=== PATIENT | female | born 1940 | race Caucasian/White ===

== ENCOUNTER 2016-06-24 11:38 | Emergency (ER) | payer MEDICARE, BC ==
--- NOTE | ~2016-06-24 | ER ---
PATIENT'S NAME: ELYSIA [facility] AGE: 76 Y [address] ROOM: [place] [address] LOCATION: [facility] ADMIT DATE: 06/24/2016 ER/Outpatient Report DISCHARGE DATE: 06/24/2016 FAMILY PHYSICIAN: Physician, Unknown ATTENDING PHYSICIAN: Jonathan Rene Time of Arrival: 1141 hours. Time of Evaluation: 1148 hours. CHIEF COMPLAINT: Cough and diarrhea. HISTORY OF PRESENT ILLNESS: The patient is a 76-year-old female, who presents to the emergency department today with a chief complaint of diarrhea. She also has a cough. She reports the diarrhea started 3 to 4 months ago. It got better and then she went and saw a surgeon about possible colonoscopy. He started her on some Metamucil and then it resolved. However, since Saturday or Saturday, she has had multiple episodes of diarrhea. She has also been achy all over. She has had a loose cough that is nonproductive. Has some decreased appetite, nasal congestion, nasal drainage, and been exposed to influenza. PAST MEDICAL HISTORY: 1. Chronic kidney disease. 2. Diverticulosis. PAST SURGICAL HISTORY: Hysterectomy. SOCIAL HISTORY: The patient denies any tobacco, alcohol, or illicit drug use. ALLERGIES: NO KNOWN DRUG ALLERGIES. MEDICATIONS: None. PRIMARY CARE DOCTOR: Dr. Castellon in [place]. REVIEW OF SYSTEMS: All systems are reviewed by myself are negative with the exception of those discussed in the HPI and past medical history. PATIENT'S NAME: ELYSIA [facility] AGE: 76 Y [address] ROOM: [place] [address] LOCATION: [facility] ADMIT DATE: 06/24/2016 ER/Outpatient Report DISCHARGE DATE: 06/24/2016 FAMILY PHYSICIAN: Physician, Unknown ATTENDING PHYSICIAN: Jonathan Rene PHYSICAL EXAMINATION: VITAL SIGNS: Weight 53.8 kg. Blood pressure 133/76, pulse 79, respiratory rate 18, temperature 98.0, and oxygen saturation 95% on room air. GENERAL: The patient is a 76-year-old female, appears of stated age, in no acute distress at this time. Well developed, well nourished. HEENT: Normocephalic and atraumatic. Pupils are equal, round, and reactive to light. Mucous membranes are moist. NECK: Supple. There is no nuchal rigidity. CARDIOVASCULAR: Regular rate and rhythm. No murmurs, rubs, or gallops. LUNGS: Clear to auscultation bilaterally. No wheezes, rales, or rhonchi. ABDOMEN: Soft, nontender, and nondistended. No rebound, rigidity, or guarding. Hyperactive bowel sounds. SKIN: Warm and dry. MUSCULOSKELETAL: The patient ambulates to room, moves all 4 extremities. LABORATORY DATA AND X-RAYS: Labs and x-rays are obtained. Giardia is negative. Cryptosporidium is negative. CMP is unremarkable except for a BUN of 47 and creatinine of 2.2. LFTs normal. Influenza A is negative. Influenza B is positive. Lactate is normal. Procalcitonin is 0.08. CBC unremarkable except for platelets of 121,000. Fecal WBCs were negative. Occult blood is negative. C. difficile is negative. Two-view chest x-ray is obtained, shows no acute process. IMPRESSION: 1. Diarrhea. 2. Cough. 3. Influenza B positive. 4. Chronic kidney disease. 5. Initial visit. EMERGENCY DEPARTMENT COURSE: The patient was brought back to the examination room. Seen and evaluated by myself. An IV was established. Laboratory analysis and imaging were obtained as described above. The patient was given a liter of normal saline. Stool studies are obtained and cultures are pending. I have discussed the results with the patient and family and friends who are at the bedside. I have written a prescription for ciprofloxacin for home. I have discussed I would like her to follow up with Dr. Castellon in 2 to 3 days for re-evaluation. I have discussed return to care instructions for any worsening symptoms or any other concerns that she may have. The patient's abdominal exam is reexamined. She continues to have a nonsurgical abdominal exam at this time. I do feel she is safe for outpatient therapy at this time. DISPOSITION: The patient is discharged to home in good condition. PATIENT'S NAME: ELYSIA [facility] AGE: 76 Y [address] ROOM: [place] [address] LOCATION: ED ADMIT DATE: 06/24/2016 ER/Outpatient Report DISCHARGE DATE: 06/24/2016 FAMILY PHYSICIAN: Physician, Unknown ATTENDING PHYSICIAN: Jonathan Rene DO ANGELICA BOYLE/yon /[id number] d: [id number] t: 06/26/16 0755, OUTPATIENT REPORT
[2016-06-24 12:50] LABS: BASOPHIL % 0.2 %; EOSINOPHIL % 0.2 %; HEMATOCRIT 39.8 % (33.0-46.0); HEMOGLOBIN 12.6 g/dL (10.0-15.0); IMMATURE GRANULOCYTE % 0.2 %; LYMPHOCYTE # 1.7 K/uL (0.8-4.0); MCH 30.8 pg (27.0-34.0); MCHC 31.7 gm/dL (32.0-36.5); MCV 97.3 fl (83.0-98.0); MONOCYTE # 0.5 K/uL (0.0-1.0); MONOCYTE % 10.9 %; MPV 11.2 fl (9.4-12.4); NEUTROPHIL # (ANC) 2.4 K/uL (1.8-7.8); NEUTROPHIL % 51.5 %; NRBC % 0 /100WBC (0-0.00); PLATELET COUNT 121 K/uL (150-450); RBC 4.09 M/uL (3.50-5.50); RDW-CV 14.1 % (11.9-14.6); WBC 4.6 K/uL (4.0-11.0)
[2016-06-24 13:10] LABS: ALBUMIN 3.6 gm/dL (3.5-5.0); ANION GAP 14.5 (10.0-19.0); CALCIUM 8.5 mg/dL (8.5-10.5); CREATININE 2.2 mg/dL (0.5-1.1); POTASSIUM 4.5 mMol/L (3.7-5.1); TOTAL BILIRUBIN 0.5 mg/dL (0.0-1.5); TOTAL PROTEIN 7.3 g/dL (6.0-8.4)
== END 2016-06-24 16:42 | disposition disaster alternative care site (69) ==
LOC: GMED 11:38
PROVIDERS: Emergency Medicine
DX: R19.7 Diarrhea, unspecified (principal); J10.1 Influenza due to other identified influenza virus with other respiratory manifestations; N18.9 Chronic kidney disease, unspecified; Z90.710 Acquired absence of both cervix and uterus
CPT/HCPCS: J7030